=== PATIENT | male | born 1985 | race Caucasian/White ===

== ENCOUNTER 2017-08-20 02:18 | Inpatient (IN) | payer OTHER, MEDICAID ==
[~2017-08-20 02:18] MED LIST: NS 1,000 ML IV ONE
[2017-08-20] MEDS ORDERED: NS 1,000 ML IV ONE (02:30)
[2017-08-20] MEDS ORDERED: ONDANSETRON 4 MG/2 ML VIAL ONE ×2 (02:35→04:34)
[2017-08-20] MEDS ORDERED: KETAMINE 500 MG/10 ML VIAL IV ONE (02:35)
[2017-08-20] MEDS ORDERED: KETAMINE 500 MG/10 ML VIAL IVP ONE (02:35)
[2017-08-20] MEDS ORDERED: KETAMINE 500 MG/10 ML VIAL IM ONE (02:37)
[2017-08-20] MEDS ORDERED: TRANEXAMIC ACID 1,000 MG in NS 500 ML IV ONE ×2 (02:40→03:00)
[2017-08-20] MEDS ORDERED: TRANEXAMIC ACID 1,000 MG in NS 100 ML IV ONE (02:40)
[2017-08-20] MEDS ORDERED: KETAMINE 200 MG/20 ML VIAL IVP ONE (02:50)
[2017-08-20 02:57] LABS: PLATELET COUNT 247 10^3/uL (150-400)
[2017-08-20] MEDS ORDERED: fentaNYL 100 MCG/2 ML INJ IVP ONE (03:05)
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
[2017-08-20 03:07] LABS: INR 1.25 (0.83-1.16); PROTIME(PATIENT) 15.9 SEC (12.0-15.0)
[2017-08-20] MEDS ORDERED: PROPOFOL 200 MG/20 ML VIAL ONE (03:08)
[2017-08-20] MEDS ORDERED: fentaNYL 250 MCG/5 ML INJ ONE (03:08)
[2017-08-20] MEDS ORDERED: MIDAZOLAM 2 MG/2 ML VIAL ONE (03:08)
[2017-08-20] MEDS ORDERED: LIDOCAINE 2% 5 ML SDV ONE (03:21)
[2017-08-20] MEDS ORDERED: ROCURONIUM 50 MG/5 ML VIAL ONE ×2 (04:07)
[2017-08-20] MEDS ORDERED: ceFAZolin 1 GM VIAL ONE ×2 (04:10)
--- NOTE | 2017-08-20 04:33 | PDANEPAE ---
ANE History of Present Illness traUMA - splenic rupture ANE Past Medical History - Cardiovascular History Hx Hypertension: No Hx Arrhythmias: No - Pulmonary History Hx Oxygen in Use at Home: No - Endocrine History Hx Diabetes: No ANE Review of Systems Review of systems is: negative Review of Systems: - Exercise capacity Exercise capacity: >=4 METS ANE Patient History - Allergies Allergies/Adverse Reactions: No Known Allergies Allergy (Unverified 08/20/17 04:27) - Home Medications Home Medications: NK [No Known Home Meds] 08/20/17 [Last Taken Unknown] - Anes Hx Anes Hx: no prior problems - Smoking Hx Smoking Status: Never smoked ANE Labs/Vital Signs - Labs Result Diagrams: 08/20/17 02:38 08/20/17 02:38 - Vital Signs Blood Pressure: 88/62 Heart Rate: 120 Respiratory Rate: 16 O2 Sat (%): 96 Height: 187.96 cm Weight: 100 kg ANE Physical Exam - Airway Neck exam: C-collar in place Mallampati Score: Unable to assesss Mouth exam: cline - Pulmonary Pulmonary: respiratory distress - Cardiovascular Cardiovascular: tachycardia - ASA Status ASA Status: II, E ANE Anesthesia Plan Anesthesia Plan: general endotracheal anesthesia Lines/Monitors: arterial line Specialized Airway: video laryngoscope Urgent/Emergent Case: Nicole blas completed preop but documented later for safe timely pt care
[2017-08-20] MEDS ORDERED: SUGAMMADEX SODIUM 200 MG/2 ML VIAL IVP ONE (04:34)
[2017-08-20] MEDS ORDERED: BACITRACIN ZINC 14.2 GM OINTTUBE TP ONE (04:36)
[2017-08-20] MEDS ORDERED: BUPIVACAINE/EPI 0.5% 30 ML SDV ONE (04:37)
[2017-08-20] MEDS ORDERED: fentaNYL 100 MCG/2 ML INJ ONE (04:49)
--- NOTE | 2017-08-20 04:53 | POSTANESTH ---
Post Anesthetic Evaluation Cardiovascular Status: Normal, Stable Respiratory Status: Normal, Stable Level of Consciousness/Mental Status: Can Participate in Eval, Moderately Sleepy Pain Control: Adequate, Prn Tx Ordered Nausea/Vomiting Control: Adequate, Prn Tx Ordered Complications Possibly Related to Anesthesia: None Noted
[2017-08-20] MEDS ORDERED: NALOXONE HCL 0.4 MG/ML INJ IVP PRN ×2 (04:54→04:59)
[2017-08-20] MEDS ORDERED: HYDROmorphONE/DILAUDID 6 MG/30 ML PCA IV PRN (04:59)
--- NOTE | 2017-08-20 05:00 | POSTOPPROG ---
Post Op Note Date of Operation: 08/20/17 Surgeon: Brendan Cantrell Anesthesiologist: Ash Anesthesia: GET(General Endotracheal) Pre-op Diagnosis: Grade 5 splenic lac Post-op Diagnosis: same Procedure: trauma ex-lap, splenectomy Findings: large lac through hilum Inf/Abcess present in the surg proc area at time of surgery?: No EBL: 2500 Total fluids administered: 2000cc NS washout Specimen(s): spleen
[2017-08-20 05:45] LABS: INR 1.21 (0.83-1.16); PROTIME(PATIENT) 15.5 SEC (12.0-15.0)
[2017-08-20] MEDS: ONDANSETRON 4 MG/2 ML VIAL IVP PRN ×4 (05:59→20:26)
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
[2017-08-20] MEDS ORDERED: BIOTENE DRY MOUTH ORAL RINSE 237 ML BTL MM PRN (07:51)
[2017-08-20 07:55] LABS: PLATELET COUNT 220 10^3/uL (150-400)
[2017-08-20] MEDS ORDERED: KETOROLAC 30 MG/1 ML SDV IVP ONE (09:24)
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
[2017-08-20] MEDS: oxyCODONE IR 15 MG TAB PO PRN ×4 (09:59→20:25)
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
[2017-08-20] MEDS: KETOROLAC 15 MG/1 ML SDV IVP SCH ×2 (12:18→17:54)
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
[2017-08-20] MEDS: DOCUSATE SODIUM 100 MG CAP PO SCH (20:26)
[2017-08-20] MEDS: GABAPENTIN 300 MG CAP PO SCH (20:26)
[2017-08-21] MEDS: oxyCODONE IR 15 MG TAB PO PRN ×2 (00:37→04:59)
[2017-08-21] MEDS: KETOROLAC 15 MG/1 ML SDV IVP SCH ×4 (00:37→18:28)
[2017-08-21] MEDS: ONDANSETRON 4 MG/2 ML VIAL IVP PRN ×4 (00:38→21:45)
[2017-08-21] MEDS ORDERED: BUPIVACAINE 0.25% 30 ML SDV ONE (07:25)
[2017-08-21] MEDS ORDERED: LR 1,000 ML IV ONE (08:50)
[2017-08-21] MEDS ORDERED: MIDAZOLAM 2 MG/2 ML VIAL IVP ONE (08:57)
--- NOTE | 2017-08-21 08:57 | PDANEPAE ---
ANE History of Present Illness left ORIF clavicle ANE Past Medical History - Cardiovascular History Hx Hypertension: No Hx Arrhythmias: No Hx Chest Pain: No Hx Coronary Artery / Peripheral Vascular Disease: No Hx CHF / Valvular Disease: No Hx Palpitations: No - Pulmonary History Hx COPD: No Hx Asthma/Reactive Airway Disease: No Hx Recent Upper Respiratory Infection: No Hx Oxygen in Use at Home: No Hx Sleep Apnea: No Sleep Apnea Screening Result - Last Documented: Negative - Endocrine History Hx Diabetes: No Hypothyroid: No Hyperthyroid: No Obesity: no ANE Review of Systems Review of systems is: negative Review of Systems: - Exercise capacity Exercise capacity: >=4 METS ANE Patient History - Allergies Allergies/Adverse Reactions: Penicillins Allergy (Unknown, Verified 08/20/17 08:37) Unknown hydrocodone Allergy (Verified 08/21/17 05:42) Hives - Home Medications Home medications: home medication list seen and reviewed Home Medications: NK [No Known Home Meds] 08/20/17 [Last Taken Unknown] - NPO status NPO Since - Liquids (Date): 08/21/17 NPO Since - Liquids (Time): 00:00 NPO Since - Solids (Date): 08/21/17 NPO Since - Solids (Time): 00:00 - Anes Hx Anes Hx: no prior problems - Smoking Hx Smoking Status: Never smoked ANE Labs/Vital Signs - Labs Result Diagrams: 08/20/17 06:25 08/20/17 05:15 - Vital Signs Blood Pressure: 125/71 Heart Rate: 66 Respiratory Rate: 18 O2 Sat (%): 99 Height: 187.96 cm Weight: 83.4 kg ANE Physical Exam - Airway Neck exam: FROM Mallampati Score: Class 1 Mouth exam: normal dental/mouth exam, cline - Pulmonary Pulmonary: no respiratory distress - Cardiovascular Cardiovascular: regular rate and rhythym - ASA Status ASA Status: II ANE Anesthesia Plan Anesthesia Plan: general endotracheal anesthesia Regional Anesthesia: interscalene BP NB
[2017-08-21] MEDS ORDERED: PROPOFOL 200 MG/20 ML VIAL ONE (09:05)
[2017-08-21] MEDS ORDERED: fentaNYL 100 MCG/2 ML INJ ONE ×2 (09:05)
[2017-08-21] MEDS ORDERED: LIDOCAINE 2% 5 ML SDV ONE (09:06)
[2017-08-21] MEDS ORDERED: ceFAZolin 2 GM/DEXTROSE 100 ML IV ONE (09:10)
--- NOTE | 2017-08-21 09:10 | PDHPUP ---
History & Physical Update H&P update statement: This history and physical update is based on an assessment of the patient which was completed after admission or registration (within 24 hours), but prior to the surgery/procedure. H&P update: H&P reviewed & patient examined, no change in patient's condition since H&P completed
[2017-08-21] MEDS ORDERED: MIDAZOLAM 2 MG/2 ML VIAL ONE (09:13)
[2017-08-21] MEDS ORDERED: HYDROmorphONE/DILAUDID 2 MG/ML INJ ONE (09:41)
[2017-08-21] MEDS ORDERED: ONDANSETRON 4 MG/2 ML VIAL ONE ×2 (09:41→12:16)
[2017-08-21] MEDS ORDERED: DEXAMETHASONE 4 MG/ML VIAL ONE (09:41)
[2017-08-21] MEDS ORDERED: KETOROLAC 30 MG/1 ML SDV ONE (09:41)
[2017-08-21] MEDS ORDERED: BUPIVACAINE/EPI 0.5% 30 ML SDV ONE (09:45)
[2017-08-21] MEDS ORDERED: ONDANSETRON 4 MG/2 ML VIAL IVP PRN (11:45)
[2017-08-21] MEDS ORDERED: HYDROmorphONE/DILAUDID 1 MG/ML INJ IVP PRN (11:45)
[2017-08-21] MEDS ORDERED: NALOXONE HCL 0.4 MG/ML INJ IVP PRN (11:45)
[2017-08-21] MEDS ORDERED: oxyCODONE IR 5 MG TAB PO PRN (11:45)
[2017-08-21] MEDS ORDERED: fentaNYL 100 MCG/2 ML INJ IVP PRN (11:45)
[2017-08-21] MEDS ORDERED: DEXAMETHASONE 4 MG/ML VIAL IVP PRN (11:45)
[2017-08-21] MEDS ORDERED: ACETAMINOPHEN 500 MG TAB PO PRN (11:45)
[2017-08-21] MEDS ORDERED: PROMETHAZINE HCL 25 MG/ML INJ IVP PRN (11:45)
[2017-08-21] MEDS ORDERED: ALBUTEROL 3 ML DEYVIAL IH PRN (11:45)
[2017-08-21] MEDS ORDERED: LR 500 ML IV PRN (11:45)
[2017-08-21] MEDS ORDERED: HYDROmorphONE/DILAUDID 1 MG/ML INJ ONE (13:14)
[2017-08-21] MEDS: GABAPENTIN 300 MG CAP PO SCH ×3 (13:42→21:50)
[2017-08-21] MEDS: DOCUSATE SODIUM 100 MG CAP PO SCH ×2 (13:42→21:50)
[2017-08-21] MEDS: oxyCODONE IR 5 MG TAB PO PRN ×4 (14:09→21:54)
[2017-08-21] MEDS: ceFAZolin 2 GM/DEXTROSE 100 ML IV SCH ×2 (14:10→21:48)
[2017-08-21] MEDS: NS 1,000 ML IV SCH ×2 (14:10→22:52)
--- NOTE | 2017-08-21 14:11 | TRAUMAPN ---
Trauma Progress Note Assessment/Plan: s/p splenectomy for trauma. Needs vaccines prior to discharge s/p ORIF L clavicle Small pneumothorax Will do chest x ray hx daily alcohol use now only on weekends. Pain control, bowel protocol, transfer to floor S: Looks good post op Objective: Vital Signs Temp Pulse Resp BP Pulse Ox 37.0 C 81 15 145/80 H 98 08/21/17 13:38 08/21/17 13:38 08/21/17 13:17 08/21/17 13:38 08/21/17 13:38 Laboratory Results 08/20/17 06:25 08/20/17 05:15 08/20/17 08/21/17 08/22/17 05:59 05:59 05:59 Intake Total 3117 4850 1000 Output Total 1075 2375 1025 Balance 2042 2475 -25 PT 15.5 SEC (12.0-15.0) H 08/20/17 05:15 INR 1.21 (0.83-1.16) H 08/20/17 05:15 Physical Exam - Physical Exam General Appearance: WD/WN, alert, no apparent distress Respiratory: chest non-tender, lungs clear, normal breath sounds Cardiac/Chest: regular rate, rhythm Abdomen: normal bowel sounds, non-tender, soft Extremities: other (L arm in dressing. No staining)
[2017-08-21] MEDS ORDERED: LACTULOSE 20 GM/30 ML UDCUP PO PRN (15:16)
[2017-08-21] MEDS ORDERED: MAGNESIUM HYDROXIDE 30 ML UDCUP PO PRN (15:16)
[2017-08-21] MEDS ORDERED: POLYETHYLENE GLYCOL 3350 17 GM PKT PO PRN (15:16)
[2017-08-21] MEDS ORDERED: BISACODYL 10 MG SUPP PR PRN (15:16)
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
[2017-08-21] MEDS: SENNOSIDES/DOCUSATE SODIUM TAB PO SCH (21:50)
[2017-08-22] MEDS: KETOROLAC 15 MG/1 ML SDV IVP SCH ×4 (00:36→18:28)
[2017-08-22] MEDS: oxyCODONE IR 5 MG TAB PO PRN ×7 (00:54→20:16)
[2017-08-22] MEDS: ceFAZolin 2 GM/DEXTROSE 100 ML IV SCH (06:14)
[2017-08-22] MEDS: DOCUSATE SODIUM 100 MG CAP PO SCH ×2 (09:14→22:02)
[2017-08-22] MEDS: GABAPENTIN 300 MG CAP PO SCH ×3 (09:14→22:02)
[2017-08-22] MEDS: SENNOSIDES/DOCUSATE SODIUM TAB PO SCH ×2 (09:14→22:02)
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
--- NOTE | 2017-08-22 11:55 | ASMTCMCOM ---
CM Note CM Note Notes: Patient is POD #1 ORIF L clavicle and doing well. He will f/u with ortho as an outpatient in 10-14 days. Patient lives at home with and children. PT/OT have cleared him for home. No Case Management needs at this time. Current CM Discharge plan: home Date Signed: 08/22/2017 11:54 AM Electronically Signed By:Merlene Chung RN
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
[2017-08-23] MEDS: KETOROLAC 15 MG/1 ML SDV IVP SCH ×4 (00:17→17:13)
[2017-08-23] MEDS: oxyCODONE IR 5 MG TAB PO PRN ×4 (00:20→14:54)
[2017-08-23] MEDS: DOCUSATE SODIUM 100 MG CAP PO SCH ×2 (08:13→20:11)
[2017-08-23] MEDS: SENNOSIDES/DOCUSATE SODIUM TAB PO SCH ×2 (08:13→20:10)
[2017-08-23] MEDS: GABAPENTIN 300 MG CAP PO SCH ×3 (08:13→22:17)
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
[2017-08-23] MEDS: ONDANSETRON 4 MG/2 ML VIAL IVP PRN (10:28)
[2017-08-23] MEDS: FAMOTIDINE 20 MG TAB PO SCH ×2 (12:31→20:10)
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
--- NOTE | 2017-08-23 17:25 | TRAUMAPN ---
Trauma Progress Note Assessment/Plan: 08/23/2017 Assessment: Chest c/o left rib/sternal and right rib pain. Left ribs 2,3,7,8,9 known to be fractured. Sternum looks intact on original CT. No right rib fractures seen Hr up to 100's - presume secondary to pain as urine output and BP ok. Incision clean and dry Clavicle per ortho Had long talk about ETOH issues. He understands and states that he has started AA. Plan: Follow up CXR Pain med adjustment F/u CBC to check Hct and platelet levels Vaccinations tomorrow Da not ready for removal yet Subjective: My pain is still an issue Objective: Vital Signs Temp Pulse Resp BP Pulse Ox 36.7 C 75 16 136/84 H 99 08/23/17 15:20 08/23/17 15:20 08/23/17 15:20 08/23/17 15:20 08/23/17 15:20 Laboratory Results 08/20/17 06:25 08/20/17 05:15 08/22/17 08/23/17 08/24/17 05:59 05:59 05:59 Intake Total 3900 3966 Output Total 3525 4050 700 Balance 375 -84 -700 PT 15.5 SEC (12.0-15.0) H 08/20/17 05:15 INR 1.21 (0.83-1.16) H 08/20/17 05:15 Physical Exam - Physical Exam General Appearance: WD/WN, alert, mild distress Neck: non-tender, full range of motion, supple, normal inspection Respiratory: lungs clear, normal breath sounds Cardiac/Chest: regular rate, rhythm, other (tender with alteral compression bilaterally, tender on AP compression in mid sternum) Abdomen: normal bowel sounds, non-tender, soft, other (Da in place, incision well approximated, no drainage) Male Genitalia: deferred Rectal: deferred Back: Normal inspection Skin: normal color, warm/dry Neuro/Psych: no motor/sensory deficits, alert, normal mood/affect, oriented x 3 Time Spent w/Patient (minutes): 25
[2017-08-23] MEDS: HYDROmorphONE/DILAUDID 2 MG TAB PO PRN (20:09)
[2017-08-23] MEDS: ACETAMINOPHEN 500 MG TAB PO SCH (20:11)
[2017-08-23] MEDS: LIDOCAINE 4%/MENTHOL 1% PATCH TD SCH (20:11)
[2017-08-23] MEDS: PATCH REMOVAL 1 EA PATCH TD SCH (20:24)
[2017-08-23] MEDS: KETOROLAC 30 MG/1 ML SDV IVP SCH (23:50)
[2017-08-24] MEDS: ACETAMINOPHEN 500 MG TAB PO SCH ×3 (00:48→17:58)
[2017-08-24] MEDS: HYDROmorphONE/DILAUDID 2 MG TAB PO PRN ×4 (00:48→20:13)
[2017-08-24 04:54] LABS: PLATELET COUNT 395 10^3/uL (150-400)
[2017-08-24] MEDS: KETOROLAC 30 MG/1 ML SDV IVP SCH ×4 (05:49→23:32)
[2017-08-24] MEDS: CYCLOBENZAPRINE 10 MG TAB PO PRN ×2 (09:25→14:48)
[2017-08-24] MEDS: DOCUSATE SODIUM 100 MG CAP PO SCH ×2 (09:26→20:13)
[2017-08-24] MEDS: GABAPENTIN 300 MG CAP PO SCH ×3 (09:26→22:04)
[2017-08-24] MEDS: FAMOTIDINE 20 MG TAB PO SCH ×2 (09:26→20:13)
[2017-08-24] MEDS: LIDOCAINE 4%/MENTHOL 1% PATCH TD SCH ×2 (09:28→20:14)
[2017-08-24] MEDS: SENNOSIDES/DOCUSATE SODIUM TAB PO SCH ×2 (09:32→20:13)
[2017-08-24] MEDS ORDERED: HAEMOPH B POLY CONJ-TET TOX/PF 0.5 ML VIAL IM ONE ×2 (10:00→14:00)
[2017-08-24] MEDS ORDERED: PNEUMOC 13-VAL CONJ-DIP CRM/PF 0.5 ML SYR IM ONE (10:00)
[2017-08-24] MEDS ORDERED: PNEUMOCOCCAL 0.5ML VACCINE VIAL IM ONE (11:47)
[2017-08-24] MEDS ORDERED: [UNRECOGNIZED DRUG - OTHER] IM ONE ×2 (14:00)
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
[2017-08-24] MEDS: PATCH REMOVAL 1 EA PATCH TD SCH (20:15)
--- NOTE | 2017-08-24 22:24 | TRAUMAPN ---
Trauma Progress Note Assessment/Plan: 08/23/2017 Assessment: Chest c/o left rib/sternal and right rib pain. Left ribs 2,3,7,8,9 known to be fractured. Sternum looks intact on original CT. No right rib fractures seen Hr up to 100's - presume secondary to pain as urine output and BP ok. Incision clean and dry Clavicle per ortho Had long talk about ETOH issues. He understands and states that he has started AA. Plan: Follow up CXR Pain med adjustment F/u CBC to check Hct and platelet levels Vaccinations tomorrow Da not ready for removal yet 08/24/2017 Assessment: F/u CXR yesterday shows new left pleural ( small ) effusion and stable small PTX Platelet count 350's transaminases dropping Hct down Plan: F/u CXR,CMP,CBC in AM Suture removal tomorrow Subjective: 08/24/2017 No complaints Objective: Vital Signs Temp Pulse Resp BP Pulse Ox 36.8 C 81 18 127/71 H 96 08/24/17 15:58 08/24/17 15:58 08/24/17 15:58 08/24/17 15:58 08/24/17 15:58 Laboratory Results 08/24/17 04:25 08/24/17 04:25 08/23/17 08/24/17 08/25/17 05:59 05:59 05:59 Intake Total 3966 2250 1400 Output Total 4050 3125 Balance -84 -875 1400 PT 15.5 SEC (12.0-15.0) H 08/20/17 05:15 INR 1.21 (0.83-1.16) H 08/20/17 05:15 Physical Exam - Physical Exam General Appearance: WD/WN, alert, no apparent distress Neck: non-tender, full range of motion, supple Respiratory: chest non-tender, lungs clear, normal breath sounds Cardiac/Chest: regular rate, rhythm, other (left arm in sling) Abdomen: normal bowel sounds, non-tender, soft Male Genitalia: deferred Rectal: deferred Back: Normal inspection Skin: normal color, warm/dry Neuro/Psych: alert, normal mood/affect, oriented x 3, abnormal cerebellar tests Time Spent w/Patient (minutes): 15
[2017-08-25] MEDS: HYDROmorphONE/DILAUDID 2 MG TAB PO PRN ×6 (00:05→22:39)
[2017-08-25] MEDS: ACETAMINOPHEN 500 MG TAB PO SCH ×3 (01:46→16:38)
[2017-08-25] MEDS: KETOROLAC 30 MG/1 ML SDV IVP SCH (06:07)
[2017-08-25] MEDS: GABAPENTIN 300 MG CAP PO SCH ×3 (07:54→22:39)
[2017-08-25] MEDS: DOCUSATE SODIUM 100 MG CAP PO SCH ×2 (09:14→19:27)
[2017-08-25] MEDS: SENNOSIDES/DOCUSATE SODIUM TAB PO SCH ×2 (09:14→19:27)
[2017-08-25] MEDS: FAMOTIDINE 20 MG TAB PO SCH ×2 (09:14→19:27)
[2017-08-25] MEDS: LIDOCAINE 4%/MENTHOL 1% PATCH TD SCH ×2 (09:15→19:26)
[2017-08-25] MEDS: CYCLOBENZAPRINE 10 MG TAB PO PRN ×2 (11:36→16:38)
--- NOTE | 2017-08-25 14:49 | TRAUMAPN ---
Trauma Progress Note Assessment/Plan: 08/23/2017 Assessment: Chest c/o left rib/sternal and right rib pain. Left ribs 2,3,7,8,9 known to be fractured. Sternum looks intact on original CT. No right rib fractures seen Hr up to 100's - presume secondary to pain as urine output and BP ok. Incision clean and dry Clavicle per ortho Had long talk about ETOH issues. He understands and states that he has started AA. Plan: Follow up CXR Pain med adjustment F/u CBC to check Hct and platelet levels Vaccinations tomorrow Casie not ready for removal yet 08/24/2017 Assessment: F/u CXR yesterday shows new left pleural ( small ) effusion and stable small PTX Platelet count 350's transaminases dropping Hct down Plan: F/u CXR,CMP,CBC in AM Suture removal tomorrow 08/25/2017 assessment: Platelet count in 500's will plan outpatient repeat on Tuesday CXR shows increasing left pleural effusion. Will ask ultrasound to drain. Hct stable. [place] out/ steri strips placed left flank wound - will ask patient to scrub with soap and water, use topical antibiotic and cover with dry dressing Plan: will hold discharge Subjective: no complaints Objective: Vital Signs Temp Pulse Resp BP Pulse Ox 37.1 C 75 17 127/81 H 96 08/25/17 07:27 08/25/17 07:27 08/25/17 07:27 08/25/17 07:27 08/25/17 07:27 Laboratory Results 08/25/17 04:38 08/24/17 04:25 08/24/17 08/25/17 08/26/17 05:59 05:59 05:59 Intake Total 2250 1900 Output Total 3125 Balance -875 1900 PT 15.5 SEC (12.0-15.0) H 08/20/17 05:15 INR 1.21 (0.83-1.16) H 08/20/17 05:15 Physical Exam - Physical Exam General Appearance: WD/WN, alert, no apparent distress Neck: non-tender, full range of motion, supple Respiratory: lungs clear, normal breath sounds Cardiac/Chest: regular rate, rhythm Abdomen: normal bowel sounds, non-tender, soft, other (casie out/ steri strips placed) Male Genitalia: deferred Rectal: deferred Back: Normal inspection Skin: normal color, warm/dry, other (left flank lacerations need to be cleaned and dressed.) Neuro/Psych: no motor/sensory deficits, alert, normal mood/affect, oriented x 3 Time Spent w/Patient (minutes): 25
--- NOTE | 2017-08-25 15:33 | ASMTCMCOM ---
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 Pt will d/c to his mothers home in [place]. Pt has started AA; his sponsor has been visiting him in hospital and will be his ride home. Pt declined additional ETOH resources. No CM d/c needs identified. CM available for changes/needs. Date Signed: 08/25/2017 03:32 PM Electronically Signed By:AMILCAR Donahue
[2017-08-25] MEDS ORDERED: HYDROmorphONE/DILAUDID 1 MG/ML INJ IVP ONE (19:15)
[2017-08-25] MEDS: PATCH REMOVAL 1 EA PATCH TD SCH (19:27)
[2017-08-25] MEDS ORDERED: LIDOCAINE 1% 300 MG/30 ML SDV IF ONE (20:15)
--- NOTE | 2017-08-25 21:51 | TRAUMAPN ---
Trauma Progress Note Assessment/Plan: 08/23/2017 Assessment: Chest c/o left rib/sternal and right rib pain. Left ribs 2,3,7,8,9 known to be fractured. Sternum looks intact on original CT. No right rib fractures seen Hr up to 100's - presume secondary to pain as urine output and BP ok. Incision clean and dry Clavicle per ortho Had long talk about ETOH issues. He understands and states that he has started AA. Plan: Follow up CXR Pain med adjustment F/u CBC to check Hct and platelet levels Vaccinations tomorrow Da not ready for removal yet 08/24/2017 Assessment: F/u CXR yesterday shows new left pleural ( small ) effusion and stable small PTX Platelet count 350's transaminases dropping Hct down Plan: F/u CXR,CMP,CBC in AM Suture removal tomorrow 08/25/2017 assessment: Platelet count in 500's will plan outpatient repeat on Tuesday CXR shows increasing left pleural effusion. Will ask ultrasound to drain. Hct stable. [place] out/ steri strips placed left flank wound - will ask patient to scrub with soap and water, use topical antibiotic and cover with dry dressing Plan: will hold discharge 08/25/2017 Addendum: 750 cc removed with thoracentesis the lower 3/4'" of incision re-opened. under local ansethesia the wound is cleaned and closed with 3-0 nylon in a vertical mattress technique. Objective: Vital Signs Temp Pulse Resp BP Pulse Ox 36.5 C 85 15 131/81 H 95 08/25/17 16:00 08/25/17 16:00 08/25/17 16:00 08/25/17 16:00 08/25/17 16:00 Laboratory Results 08/25/17 04:38 08/24/17 04:25 08/24/17 08/25/17 08/26/17 05:59 05:59 05:59 Intake Total 2250 1900 300 Output Total 3125 750 Balance -875 1900 -450 PT 15.5 SEC (12.0-15.0) H 08/20/17 05:15 INR 1.21 (0.83-1.16) H 08/20/17 05:15
[2017-08-26] MEDS: ACETAMINOPHEN 500 MG TAB PO SCH ×2 (02:21→08:32)
[2017-08-26] MEDS: HYDROmorphONE/DILAUDID 2 MG TAB PO PRN ×3 (02:22→13:31)
[2017-08-26] MEDS: CYCLOBENZAPRINE 10 MG TAB PO PRN ×3 (02:23→16:02)
[2017-08-26 08:04] VITALS: BP 135/71
[2017-08-26] MEDS: GABAPENTIN 300 MG CAP PO SCH ×2 (08:32→16:02)
[2017-08-26] MEDS: SENNOSIDES/DOCUSATE SODIUM TAB PO SCH (08:33)
[2017-08-26] MEDS: LIDOCAINE 4%/MENTHOL 1% PATCH TD SCH (08:34)
[2017-08-26] MEDS: FAMOTIDINE 20 MG TAB PO SCH (08:34)
[2017-08-26] MEDS: DOCUSATE SODIUM 100 MG CAP PO SCH (08:44)
--- NOTE | 2017-08-26 13:43 | ASMTLACE ---
[facility] Length of stay for Answers: 4-6 days current admission Acuity / Level of Answers: Yes Care: Did the patient have an inpatient admission? Comorbidities - select Answers: Other Notes: Spleenic rupture all that apply # of Emergency department Answers: 0 visits in the last 6 months Social determinants Answers: History of substance abuse (ETOH, street drugs, prescription drugs, etc.) Score: 11 Date Signed: 08/26/2017 01:42 PM Electronically Signed By:AMILCAR Donahue
--- NOTE | 2017-08-26 13:43 | ASMTCMCOM ---
CM Note CM Note Notes: Pt medically stable for d/c, no CM d/c needs identified. Date Signed: 08/26/2017 01:43 PM Electronically Signed By:AMILCAR Donahue
--- NOTE | 2017-08-26 14:03 | GDS ---
[f rep st] DISCHARGE SUMMARY HISTORY OF PRESENT ILLNESS: A 31-year-old male brought to the emergency department as a limited trau ma activation, found to have a variety of injuries, including a grade 5 splenic rupture and a left cl avicle fracture, as well as several left rib fractures. The patient underwent a splenectomy and eventually ORIF of the left clavicle. He also was noted even tually to have a left pleural effusion, which responded to thoracentesis. HOSPITAL COURSE: Uneventful recovery otherwise. At the time of discharge, platelet count is 687,000 , and he is going to be rechecked in several days with Dr. Cantrell. He also has followup arranged with Dr. Delcid for his clavicle fracture. He is discharged on hydromorphone, gabapentin, and Flexeril . DISPOSITION: As above. /[id number]/MODL
== END 2017-08-26 16:31 | disposition home or self-care (01) | DRG 800 ==
LOC: EDUNIT# → F2N 05:16 → UNDODISIN 12:02 → F2N 17:21 → F3N 08-21 11:34
PROVIDERS: ADMIT Surgery; ATTEND Surgery
PROC: 30233L1 Transfusion of Nonautologous Fresh Plasma into Peripheral Vein, Percutaneous Approach (ICD-10-PCS; 2017-08-20)
PROC: 30233R1 Transfusion of Nonautologous Platelets into Peripheral Vein, Percutaneous Approach (ICD-10-PCS; 2017-08-20)
PROC: 30233N1 Transfusion of Nonautologous Red Blood Cells into Peripheral Vein, Percutaneous Approach (ICD-10-PCS; 2017-08-20)
PROC: 0WCG0ZZ Extirpation of Matter from Peritoneal Cavity, Open Approach (ICD-10-PCS; principal; 2017-08-20 03:00)
PROC: 07TP0ZZ Resection of Spleen, Open Approach (ICD-10-PCS; principal; 2017-08-20 03:00)
PROC: 0PSB04Z Reposition Left Clavicle with Internal Fixation Device, Open Approach (ICD-10-PCS; 2017-08-21)
PROC: 0W9B3ZZ Drainage of Left Pleural Cavity, Percutaneous Approach (ICD-10-PCS; 2017-08-25)
DX: S36.09XA Other injury of spleen, initial encounter (principal); S22.42XA Multiple fractures of ribs, left side, initial encounter for closed fracture; S42.022A Displaced fracture of shaft of left clavicle, initial encounter for closed fracture; S42.112A Displaced fracture of body of scapula, left shoulder, initial encounter for closed fracture; F10.929 Alcohol use, unspecified with intoxication, unspecified; E86.9 Volume depletion, unspecified; V47.0XXA Car driver injured in collision with fixed or stationary object in nontraffic accident, initial encounter; K21.9 Gastro-esophageal reflux disease without esophagitis; Z23 Encounter for immunization
CPT/HCPCS: 80305; 82435-PO; 82565-PO; 82947-PO; 84132-PO; 84295-PO; 84520-PO; 85014-PO; 92507-GN; 92523-GN; 96365; 96366; 97116-GP; 97161-GP; 97166-GO; 97168-GO; 97535-GO; C1713; G0009; G0480; J0690; J1100; J1170; J1885; J2250; J2405; J2704; J3010; P9016; P9017; P9021; P9035

== ENCOUNTER → 2017-09-08 | Outpatient (CLI) | payer MEDICAID | LOC: BMCIMAGING 16:09 | PROVIDERS: ATTEND Orthopaedic Surgery Hand Surgery | DX: S42.112D Displaced fracture of body of scapula, left shoulder, subsequent encounter for fracture with routine healing (principal); S42.022D Displaced fracture of shaft of left clavicle, subsequent encounter for fracture with routine healing; S22.42XD Multiple fractures of ribs, left side, subsequent encounter for fracture with routine healing ==

== ENCOUNTER → 2017-09-30 | Outpatient (CLI) | payer MEDICAID | LOC: BMCIMAGING 14:38 | PROVIDERS: ATTEND Orthopaedic Surgery Hand Surgery | DX: S42.112D Displaced fracture of body of scapula, left shoulder, subsequent encounter for fracture with routine healing (principal); S42.022D Displaced fracture of shaft of left clavicle, subsequent encounter for fracture with routine healing; S22.42XD Multiple fractures of ribs, left side, subsequent encounter for fracture with routine healing ==

== ENCOUNTER → 2017-10-21 | Outpatient (CLI) | payer BC, MEDICAID | LOC: BMCIMAGING 14:39 | PROVIDERS: ATTEND Orthopaedic Surgery Hand Surgery | DX: S42.022D Displaced fracture of shaft of left clavicle, subsequent encounter for fracture with routine healing (principal); S42.112D Displaced fracture of body of scapula, left shoulder, subsequent encounter for fracture with routine healing; S22.32XD Fracture of one rib, left side, subsequent encounter for fracture with routine healing ==